=== PATIENT | female | born 1950 | race Caucasian/White ===

== ENCOUNTER → 2016-11-16 | Outpatient (CLI) | payer MEDICARE ==
[2013-09-04 09:09] VITALS: BP 156/71
--- NOTE | 2016-11-16 13:34 | KCIC ---
EXAM: Upper gastrointestinal series exam. HISTORY: Recurrent vomiting for 20 years. TECHNIQUE: Fluoroscopic imaging was performed in multiple positions and obliquities during the oral administration of barium contrast. Effervescent crystals were administered for dedicated air contrast views. A solid barium tablet was also administered. 14 fluoroscopic images were obtained for a total fluoroscopy time of 55 seconds. COMPARISON: None. FINDINGS: There is normal swallowing function. There is no evidence of aspiration or penetration. There is a slightly patulous esophagus. No intrinsic mucosal lesion is seen. There is no delayed transit of liquid contrast or a solid barium tablet into the stomach. No hiatal hernia is seen. There is significant reflux to the proximal esophagus resulting in regurgitation during the exam while in the recumbent position. The stomach demonstrates normal configuration and a normal mucosal folding pattern. The proximal small bowel is unremarkable. IMPRESSION: 1. Significant gastroesophageal reflux to the proximal esophagus during recumbent positioning, resulting in regurgitation of contrast during the exam. 2. Patulous esophagus. No suspicious esophageal lesion is seen and there is no delayed transit of contrast into the stomach. Electronically signed by: Daily Mcpherson MD (11/16/2016 1:31 PM) [facility]
== END | disposition home or self-care (01) ==
LOC: KCIC 11:54
PROVIDERS: ATTEND Family Medicine
DX: K21.9 Gastro-esophageal reflux disease without esophagitis (principal); R11.11 Vomiting without nausea; R13.10 Dysphagia, unspecified
CPT/HCPCS: 74240

== ENCOUNTER → 2017-01-21 | Day surgery (SDC) | payer MEDICARE ==
[~2017-01-21] MED LIST: DICL75TA PO; ESTR0.5T PO; IV RINGERS,LACTATED 1000ML 1,000 ML IV ONE; LIDOCAINE 2% PF Vial for OR 5 ML VIAL. ONE; MECL25TA3 PO; MORP100T30 PO; PROPOFOL 20 ML IV ONE; THYR30TA PO; VENL150C PO
[2017-01-21 13:37] VITALS: BP 148/74
--- NOTE | 2017-01-24 15:09 | PATHOLOGY ---
PATHOLOGY REPORT * * * * * * * * FINAL DIAGNOSIS: Esophageal biopsy, proximal esophagus: - Gastric heterotopia / inlet patch. See comment. COMMENT: Sections of the proximal esophageal biopsy reveal segments of gastric mucosa showing mild chronic inflammation. 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 There is no evidence of Montes's change, dysplasia or malignancy. (JPM:mml; 01/24/2017) REPORT ELECTRONICALLY SIGNED BY: John Mcfadden M.D. DATE/TIME: 01/24/2017 15:09 * * * * * * * * GROSS PATHOLOGY: Received in formalin labeled "Yoon Faustin, inlet patch proximal esophagus," are 3 segments of pena soft tissue measuring 0.8 x 1.1 x 0.2 cm in aggregate dimensions and ranging from 0.2 to 0.3 cm in maximum dimension. The specimen is submitted entirely in cassette A1. (TSD; 01/21/2017) INITIAL CPT CODE(S): A; 89477 Professional services performed by [facility] [place] [address] Technical services performed by [facility] at [address] [place] [address]. SPECIMEN(S) RECEIVED: A.Intel patch proximal esophagus CLINICAL HISTORY: Nausea, vomiting PATIENT: YOON FAUSTIN /AGE: 710/14/1950 (Age: 66) PATIENT #: [id number] ALT CASE #: SPECIMEN COLLECTION DATE: 01/21/2017 SPECIMEN RECEIVED DATE: 01/21/2017 [facility] - [address] [place] [address] - PHONE: [phone] * * * END OF REPORT * * *
== END | disposition home or self-care (01) ==
LOC: SURG 11:25
PROVIDERS: ATTEND Internal Medicine Gastroenterology
DX: K21.0 Gastro-esophageal reflux disease with esophagitis (principal); K29.50 Unspecified chronic gastritis without bleeding; M19.91 Primary osteoarthritis, unspecified site; E03.9 Hypothyroidism, unspecified; Z87.39 Personal history of other diseases of the musculoskeletal system and connective tissue; Z90.710 Acquired absence of both cervix and uterus
CPT/HCPCS: 43239; J2704; 88305; J2001

== ENCOUNTER → 2017-02-04 | Outpatient (CLI) | payer MEDICARE ==
[2017-01-21 13:37] VITALS: BP 148/74
[~2017-02-04] MED LIST changes: -IV RINGERS,LACTATED 1000ML 1,000 ML IV ONE; -LIDOCAINE 2% PF Vial for OR 5 ML VIAL. ONE; -PROPOFOL 20 ML IV ONE
--- NOTE | 2017-02-04 10:16 | RAD ---
INDICATION: Nausea and vomiting COMPARISON: None. FINDINGS: 2 mCi of Tc99m Sulfur Colloid was administered orally. Scintigraphic images were obtained and a time to half emptying curve was generated. The patient's time to half emptying is estimated at 232 minutes. IMPRESSION: The patient's time to half emptying is estimated at 232 minutes which is delayed. Would correlate for possible causes such as gastroparesis.
== END | disposition home or self-care (01) ==
LOC: NM 07:31
PROVIDERS: ATTEND Internal Medicine Gastroenterology
DX: R11.2 Nausea with vomiting, unspecified (principal)
CPT/HCPCS: 78264; A9541

== ENCOUNTER → 2018-10-10 | Day surgery (SDC) | payer BC ==
[~2018-10-10] MED LIST changes: +HYDROmorphone 2 MG/ML VIAL IV PRN; +IV RINGERS,LACTATED 1000ML 1,000 ML IV SCH; +LIDOCAINE 1% PF 2 ML VIAL. ID PRN; +LIDOCAINE 2% PF 5 ML VIAL. ONE; +MORPHINE SULFATE 2 MG/ML VIAL. IV PRN; +ONDANSETRON PF 4 MG/2 ML VIAL. IV PRN; +PROCHLORPERAZINE 10 MG/2 ML VIAL. IV PRN; +PROPOFOL 40 ML IV ONE; +SCOPOLAMINE 1.5MG PATCH. TD ONE; +fentaNYL PF VIAL 100 MCG/2 ML VIAL IV PRN
[2018-10-10 17:02] VITALS: BP 141/61
--- NOTE | 2018-10-11 00:42 | CONS ---
DATE OF CONSULTATION: 10/10/2018 REFERRING PHYSICIAN: Dr. Harvey Rivero. REASON FOR CONSULTATION: Dysphagia, colorectal screening. HISTORY OF PRESENT ILLNESS: A 67-year-old female, whose past medical history is significant for osteoarthrosis, hypothyroidism, history of nondiabetic gastroparesis and dysphagia, seen with recurrent dysphagia and previous dilatations have helped; however, food does consistently stick again. In addition, she is here for screening colonoscopy. No bleeding, no diarrhea, no constipation. There is no family history. Last exam was over 6 years ago. She is here today for repeat evaluation. PAST MEDICAL HISTORY: Nondiabetic gastroparesis, GERD, arthritis, hypothyroidism. ALLERGIES: None. MEDICATIONS: Include diclofenac, meclizine, morphine, thyroid and Effexor. SOCIAL HISTORY: Nonsmoker, nondrinker. FAMILY HISTORY: Noncontributory except for hypertension. PAST SURGICAL HISTORY: Status post appendectomy, , eye surgery and hysterectomy. REVIEW OF SYSTEMS: Per records. PHYSICAL EXAMINATION: GENERAL: Reveals a well-nourished, well-developed female who is alert, cooperative, in no acute distress. VITAL SIGNS: Temperature 97.5, pulse 85, respiratory rate 16. HEENT: Normocephalic, atraumatic head. Pupils and extraocular muscles are not tested. Sclerae are anicteric. NECK: Supple. LUNGS: Clear. CARDIOVASCULAR: Reveals S1, S2 without S3, S4 or appreciable murmur. ABDOMEN: Reveals soft abdomen, normal bowel sounds without appreciable hepatosplenomegaly. EXTREMITIES: Reveals no cyanosis, clubbing, edema. IMPRESSION: 1. Dysphagia, most likely secondary to Schatzki's ring and presbyesophagus. Differential includes eosinophilic esophagitis, malignancy, achalasia; therefore, recommend upper endoscopy with possible biopsy and dilatation. Risks and benefits of procedure have been previously discussed. The patient is willing to proceed. 2. Colorectal screening is warranted. Risks and benefits were discussed. The patient is willing to proceed at this time. PARVEEN ARREDONDO MD DR: VAMSHI/oneyda JOB#: [id number] / [id number]
--- NOTE | 2018-10-13 15:05 | PATHOLOGY ---
[facility] Accession Number: [id number] . 01 Material submitted: . esophagus - DISTAL ESOPHAGEAL BIOPSY. Modifiers: distal . 01 Clinical history: . Dysphagia, CRCS . 02 Diagnosis: Esophageal biopsies, distal esophagus: - Segment of hyperplastic squamous esophageal mucosa, and multiple segments of gastric mucosa showing focal foveolar hyperplasia and chronic inflammation, consistent with reflux esophagitis. (JPM:[facility] 10/13/2018) P/10/13/2018 . 02 Comment: Sections of the distal esophageal biopsy reveal a segment of tangentially oriented hyperplastic squamous esophageal mucosa, and multiple segments of gastric mucosa showing focal foveolar hyperplasia and mild to moderate chronic inflammation. The findings are consistent with reflux esophagitis. There is no evidence of Montes's change, dysplasia or malignancy. (JPM:[facility] 10/13/2018) . 02 Electronically signed: . John Mcfadden MD, Pathologist NPI- [id number] . 01 Gross description: . Received in formalin labeled "Eisman, Yoon, distal esophageal BX, rule out esophagitis," are multiple segments of pnea soft tissue measuring 1.6 x 0.5 x 0.1 cm in aggregate dimensions. The specimen is filtered and entirely submitted in cassette A1. (TSD; 10/11/2018) TOB/TOB . 02 Pathologist provided ICD-10: K21.0 . 02 CPT . 575711 Performed at: 01 [facility] [address], [place] [id number] MD Diony Ramirez MD Phone: [phone] Performed at: 02 [facility] [address] [place], [place] [id number] MD John Mcfadden MD Phone: [phone]
== END ==
LOC: ENDOS 14:49
PROVIDERS: ATTEND Internal Medicine Gastroenterology
DX: Z12.11 Encounter for screening for malignant neoplasm of colon (principal); K22.2 Esophageal obstruction; K21.0 Gastro-esophageal reflux disease with esophagitis; K57.30 Diverticulosis of large intestine without perforation or abscess without bleeding; K64.0 First degree hemorrhoids; E03.9 Hypothyroidism, unspecified; Z87.39 Personal history of other diseases of the musculoskeletal system and connective tissue
CPT/HCPCS: 43239; 43450; 45378; 88305; J2001; J2704

== ENCOUNTER → 2020-11-06 | Outpatient (CLI) | payer OTHER ==
[2018-10-10 17:02] VITALS: BP 141/61
[~2020-11-06] MED LIST changes: -HYDROmorphone 2 MG/ML VIAL IV PRN; -IV RINGERS,LACTATED 1000ML 1,000 ML IV SCH; -LIDOCAINE 1% PF 2 ML VIAL. ID PRN; -LIDOCAINE 2% PF 5 ML VIAL. ONE; +MECL-75 PO; -MECL25TA3 PO; -MORPHINE SULFATE 2 MG/ML VIAL. IV PRN; -ONDANSETRON PF 4 MG/2 ML VIAL. IV PRN; -PROCHLORPERAZINE 10 MG/2 ML VIAL. IV PRN; -PROPOFOL 40 ML IV ONE; -SCOPOLAMINE 1.5MG PATCH. TD ONE; -fentaNYL PF VIAL 100 MCG/2 ML VIAL IV PRN
--- NOTE | 2020-11-06 16:36 | RAD ---
PROCEDURE: MG BILAT SCREEN+GONZALO HISTORY: The patient is 70 years old and is seen for Reason: SCREENING MAMMOGRAM / Spl. Instructions: / History: . COMPARISON: March 31, 2016 TECHNIQUE: CC and MLO views of both breasts were obtained. Images were processed by the [employer] computer-aided detection system. DENSITY: The breast parenchyma is heterogeneously dense. This may lower the sensitivity of mammograph y. FINDINGS: Left breast: Well-circumscribed mass within the left outer breast, unchanged compared to prior. Resol yusra masses within the posterior breast seen previously. Right breast: No suspicious microcalcifications, mass or architectural distortion. IMPRESSION: Negative. No evidence of malignancy. Recommend annual screening mammograms per [employer] guidelines. She will be due in one year. BI-RADS category 2 Benign Patient entered into a reminder system for annual screening mammogram. Electronically signed by: Pedro Coats DO (11/06/2020 4:33 PM) [id number]
== END ==
LOC: MAMMO 13:00
PROVIDERS: ATTEND Family Medicine
DX: Z12.31 Encounter for screening mammogram for malignant neoplasm of breast (principal)
CPT/HCPCS: 77063; 77067